=== PATIENT | female | born 1970 | race Caucasian/White ===

== ENCOUNTER → 2022-10-11 | Emergency (ER) | payer MEDICARE, OTHER ==
[~2022-10-11] VITALS: Ht 154.9 cm; Wt 48.5 kg
[2022-10-11 15:19] VITALS: BP 161/92
--- NOTE | 2022-10-11 15:30 | NUR ---
SABINA [id number] Escorted by Officer [id number] "Having issues with landlord making Chrons flare up".
--- NOTE | 2022-10-11 16:15 | NUR ---
Seen by Dr Boone-Pt refusing any further intervention at this time and wants to leave AMA. Patient fully aware of risks of signing against medical advice. Bello
== END | disposition home or self-care (01) ==
LOC: ER 15:10
DX: M79.10 Myalgia, unspecified site (principal); K50.90 Crohn's disease, unspecified, without complications; Z60.2 Problems related to living alone; Z88.0 Allergy status to penicillin